=== PATIENT | male | born 1995 | race Two or more races ===

== ENCOUNTER 2020-05-25 02:29 | Emergency (ER) | payer OTHER ==
[~2020-05-25] VITALS: Ht 175.3 cm; Wt 68.0 kg
--- NOTE | 2020-05-25 02:59 | NUR ---
Dr. Bassett at bedside for MSE.
--- NOTE | 2020-05-25 03:50 | NUR ---
Patient discharged to home in stable condition. Written and verbal after care instructions given. Patient verbalizes understanding of instructions. Stressed follow up or return to ER for worsening s/s. Patient out of ER with steady gait, no acute signs of distress, VSS, all belongings taken, provided with copy of covid result.
[2020-05-25 03:51] VITALS: BP 127/57
== END 2020-05-25 03:51 | disposition home or self-care (01) ==
LOC: ER 02:45
DX: U07.1 COVID-19 (principal); J45.909 Unspecified asthma, uncomplicated
CPT/HCPCS: A4663